=== PATIENT | female | born 1990 ===

== ENCOUNTER 2018-07-28 08:10 | Emergency (ER) | payer OTHER ==
[2018-07-28] MEDS ORDERED: DOXYcycline CAP(*) 100 MG PO ONE (08:50)
--- NOTE | 2018-07-28 08:55 | UC ---
Skin Complaint HPI - HPI Summary HPI Summary: Found tick behind R axilla last night and pulled it off. 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 Thinks it wasn't there 2 nights ago when she showered. Denies any other symptoms. - History of Current Complaint Chief Complaint: UCSkin Time Seen by Provider: 07/28/18 08:33 Stated Complaint: TICK BITE Hx Obtained From: Patient ?: No Onset/Duration: Lasting Days Skin Exposure Onset/Duration: Days Ago Onset Severity: Mild Current Severity: Mild Pain Intensity: 1 Location: Discrete Character: Redness Aggravating Factor(s): Nothing Alleviating Factor(s): Nothing Associated Signs & Symptoms: Positive: Negative Related History: Possible Reaction to: Insect - Allergy/Home Medications Allergies/Adverse Reactions: Allergies Allergy/AdvReac Type Severity Reaction Status Date / Time No Known Allergies Allergy Verified 07/28/18 08:41 Home Medications: Home Medications NK [No Home Medications Reported] 07/28/18 [History Confirmed 07/28/18] Review of Systems Constitutional: Negative Skin: Other - tick bite Eyes: Negative ENT: Negative Respiratory: Negative Cardiovascular: Negative Gastrointestinal: Negative Genitourinary: Negative Motor: Negative Neurovascular: Negative Musculoskeletal: Negative Neurological: Negative Psychological: Negative Is Patient Immunocompromised?: No All Other Systems Reviewed And Are Negative: Yes PMH/Surg Hx/FS Hx/Imm Hx Previously Healthy: Yes - Surgical History Surgical History: Yes Surgery Procedure, Year, and Place: [id number] - Family History Known Family History: Negative: Hypertension, Diabetes - Social History Lives: Alone Alcohol Use: Occasionally Substance Use Type: None Smoking Status (MU): Never Smoked Tobacco Physical Exam Triage Information Reviewed: Yes Appearance: Well-Appearing, No Pain Distress, Well-Nourished Vital Signs: Initial Vital Signs Temp 98.3 F 07/28/18 08:37 Pulse 83 07/28/18 08:37 Resp 18 07/28/18 08:37 BP 113/73 07/28/18 08:37 Pulse Ox 98 07/28/18 08:37 Vital Signs Reviewed: Yes Eye Exam: Normal Eyes: Positive: Conjunctiva Clear ENT Exam: Normal ENT: Positive: Normal ENT inspection, Hearing grossly normal, Pharynx normal, TMs normal Dental Exam: Normal Neck exam: Normal Neck: Positive: Supple, Nontender, No Lymphadenopathy Respiratory Exam: Normal Respiratory: Positive: Chest non-tender, Lungs clear, Normal breath sounds, No respiratory distress, No accessory muscle use Cardiovascular Exam: Normal Cardiovascular: Positive: RRR, No Murmur Musculoskeletal Exam: Normal Musculoskeletal: Positive: Strength Intact Neurological Exam: Normal Psychological Exam: Normal Skin Exam: Other - R posterior axilla tick bite site benign -- ecchymotic center , small scab, extravasated blood in a rin around the bite, all approx 1cm in diameter. No streaking, erythema, or drainage. Course/Dx - Diagnoses Provider Diagnoses: Tick bite Discharge - Sign-Out/Discharge Documenting (check all that apply): Patient Departure All imaging exams completed and their final reports reviewed: No Studies - Discharge Plan Condition: Stable Disposition: HOME Patient Education Materials: Tick Bite (ED) Referrals: No Primary Care Phys,NOPCP [Primary Care Provider] - Additional Instructions: If you develop any of the following, please see your physician promptly: (1) Fever, chills, or generalized malaise associated with a headache. (2) A red round area at the site of the bite (or elsewhere) (3) Joint pain, joint swelling or generalized weakness. (4) Redness, swelling, or drainage at the site of the bite. Check yourself, your children and your pets for ticks whenever you've been in an area where ticks live. To remove a tick, grasp it firmly with some tweezers or a string in a slipknot as close to its head as possible and pull it steadily. Ticks do not have a typical "head" attached to their body. There are mouth parts sticking out which they use to feed. If there are mouth parts left behind in the wound there is NO increased risk of Lyme infection; however, the chances of a bacterial skin infection (cellulitis) are higher. If mouth parts remain after tick removal, the best thing to do is apply warm soaks to the area 3-4 times per day to encourage the skin to expel the foreign material. DOXYCYCLINE: Doxycycline (Vibramycin, Doryx) is an antibiotic of the tetracycline family. This type of drug is useful for infections of the respiratory tract and genital tract, and is sometimes used for intestinal infections. Unlike most tetracyclines, doxycycline can be taken with food. It is longer acting, and (usually) less prone to side effects than regular tetracycline. Tetracycline antibiotics can stain immature teeth and SHOULD NOT BE TAKEN BY CHILDREN, NURSING MOTHERS, OR WOMEN. Tetracyclines can make you more prone to sunburn. Abdominal cramping, nausea, and diarrhea are occasional side effects. Women may experience vaginal yeast infections. Call the doctor at once if you develop hives, itching, shortness of breath , or lightheadedness. WHEN A TICK IS NOT ENGORGED AND HAS BEEN ON LESS THAN 24 HOURS - THE RISK FOR LYME IS NEGLIGIBLE. YOU CAN REMOVE THE TICK AND OBSERVE THE AREA ON YOUR OWN. FOLLOW-UP CARE: You should contact your private physician for follow-up care if you develop spreading redness near the site of the bite or on any other areas of the body. If you are unable to get a timely appointment, or if you are worsening, call us or return for re-evaluation. - Billing Disposition and Condition Condition: STABLE Disposition: Home
== END 2018-07-28 09:01 | disposition home or self-care (01) ==
LOC: UCEAST 08:10
DX: S40.861A Insect bite (nonvenomous) of right upper arm, initial encounter (principal); W57.XXXA Bitten or stung by nonvenomous insect and other nonvenomous arthropods, initial encounter; Y92.9 Unspecified place or not applicable
CPT/HCPCS: 99202; A9270-GY; G0463